=== PATIENT | male | born 1985 | race Caucasian/White ===

== ENCOUNTER → 2020-01-26 13:29 | Outpatient (BNVA) | payer MEDICAID, SELFPAY | PROVIDERS: Family Provider Nurse Practitioner; PCP Family Medicine; Visit Provider Dermatology | DX: R22.9 Localized swelling, mass and lump, unspecified (principal); D17.0 Benign lipomatous neoplasm of skin and subcutaneous tissue of head, face and neck; D17.9 Benign lipomatous neoplasm, unspecified | CPT/HCPCS: 99203 ==

== ENCOUNTER → 2020-02-17 08:57 | Outpatient (BNVA) | payer MEDICAID, SELFPAY | PROVIDERS: Family Provider Nurse Practitioner; PCP Family Medicine; Visit Provider Dermatology | DX: D48.9 Neoplasm of uncertain behavior, unspecified (principal); F17.210 Nicotine dependence, cigarettes, uncomplicated | CPT/HCPCS: 11444; 12052; 88304; 88305 ==

== ENCOUNTER → 2020-02-24 08:22 | Outpatient (BNVA) | payer MEDICAID, SELFPAY | PROVIDERS: Family Provider Nurse Practitioner; PCP Family Medicine; Visit Provider Dermatology | DX: Z48.02 Encounter for removal of sutures (principal); F17.210 Nicotine dependence, cigarettes, uncomplicated | CPT/HCPCS: 99024 ==

== ENCOUNTER → 2020-10-26 12:25 | Outpatient (BNVA) | payer MEDICAID, SELFPAY | PROVIDERS: Family Provider Nurse Practitioner; PCP Family Medicine; Visit Provider Psychiatry & Neurology Psychiatry | DX: F60.3 Borderline personality disorder (principal); F43.12 Post-traumatic stress disorder, chronic; F17.200 Nicotine dependence, unspecified, uncomplicated | CPT/HCPCS: 99204 ==

== ENCOUNTER → 2020-12-14 15:27 | Outpatient (BNVA) | payer MEDICAID, SELFPAY | PROVIDERS: Family Provider Nurse Practitioner; PCP Family Medicine; Visit Provider Psychiatry & Neurology Psychiatry | DX: F60.3 Borderline personality disorder (principal); F17.200 Nicotine dependence, unspecified, uncomplicated; F43.12 Post-traumatic stress disorder, chronic | CPT/HCPCS: 99214 ==

== ENCOUNTER → 2021-02-06 09:21 | Outpatient (BNVA) | payer MEDICAID, SELFPAY | PROVIDERS: Family Provider Nurse Practitioner; PCP Family Medicine; Visit Provider Psychiatry & Neurology Psychiatry | DX: F60.3 Borderline personality disorder (principal) | CPT/HCPCS: 80053; 80061; 83036; 84443; 85025 ==

== ENCOUNTER → 2021-03-07 15:38 | Outpatient (BNVA) | payer MEDICAID, SELFPAY | PROVIDERS: Family Provider Nurse Practitioner; PCP Family Medicine; Visit Provider Psychiatry & Neurology Psychiatry | DX: F60.3 Borderline personality disorder (principal); F17.200 Nicotine dependence, unspecified, uncomplicated; F43.12 Post-traumatic stress disorder, chronic | CPT/HCPCS: 99213 ==

== ENCOUNTER → 2021-05-30 15:31 | Outpatient (BNVA) | payer MEDICAID, SELFPAY | PROVIDERS: Family Provider Nurse Practitioner; PCP Family Medicine; Visit Provider Psychiatry & Neurology Psychiatry | DX: F60.3 Borderline personality disorder (principal); F43.12 Post-traumatic stress disorder, chronic; F17.200 Nicotine dependence, unspecified, uncomplicated | CPT/HCPCS: 99213 ==

== ENCOUNTER → 2021-08-22 15:03 | Outpatient (BNVA) | payer MEDICAID, SELFPAY | PROVIDERS: Family Provider Nurse Practitioner; PCP Family Medicine; Visit Provider Psychiatry & Neurology Psychiatry | DX: F60.3 Borderline personality disorder (principal); F17.200 Nicotine dependence, unspecified, uncomplicated; F43.12 Post-traumatic stress disorder, chronic | CPT/HCPCS: 99214 ==

== ENCOUNTER → 2021-10-18 15:13 | Outpatient (BNVA) | payer MEDICAID, SELFPAY | PROVIDERS: Family Provider Nurse Practitioner; PCP Family Medicine; Visit Provider Psychiatry & Neurology Psychiatry | DX: F60.3 Borderline personality disorder (principal); F43.12 Post-traumatic stress disorder, chronic; F17.200 Nicotine dependence, unspecified, uncomplicated | CPT/HCPCS: 99214 ==

== ENCOUNTER → 2021-12-25 10:18 | Outpatient (BNVA) | payer MEDICAID, SELFPAY | PROVIDERS: Family Provider Nurse Practitioner; PCP Family Medicine; Visit Provider Psychiatry & Neurology Psychiatry | DX: F60.3 Borderline personality disorder (principal); F43.12 Post-traumatic stress disorder, chronic; F17.200 Nicotine dependence, unspecified, uncomplicated | CPT/HCPCS: 99214 ==

== ENCOUNTER → 2024-03-10 14:33 | Outpatient (BNVA) | payer OTHER, SELFPAY | PROVIDERS: Family Provider Nurse Practitioner; PCP Family Medicine; Visit Provider Nurse Practitioner | DX: Z79.899 Other long term (current) drug therapy | CPT/HCPCS: 80061; 83036 ==

== ENCOUNTER 2024-10-02 12:11 | Inpatient (IN) | payer MEDICAID, SELFPAY ==
[2024-10-02 12:19] VITALS: BP 146/78; PULSE 86; RESP 17; TEMP 36.9; O2SAT 100; BMI 24.3
--- NOTE | 2024-10-02 12:48 | ECG_ITS ---
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 Measurements Intervals Adams Rate: 65 P: 45 ID: [id number] QRS: 23 QRSD: 95 T: 18 QT: 364 QTc: 381 Interpretive Statements SINUS RHYTHM Compared to ECG 12/24/2018 15:11:01 No significant changes Electronically Signed On 10-02-2024 14:39:37 CDT by Yue Quevedo M.D. [email or web address]
--- NOTE | 2024-10-02 12:51 | W.ED.PSYCHS ---
HPI - Psych General: Chief Complaint: Psychiatric Symptoms Stated Complaint: mhe Time Seen by Provider: 10/02/24 12:12 History of Present Illness: 39-year-old male presents emergency department chief complaint of suicidal ideations. Patient reports has been over a year since he has seen a psychiatrist reports history of bipolar disorder as well as borderline personality disorder as well as depression. The patient reports current difficulty with sleeping denies any recent drugs or alcohol. Patient reports he is on olanzapine that he is taking as prescribed patient presents to the ER due to his suicidal thoughts he does not endorse any current plan. Associated symptoms: Reports depression and suicidal ideation; Deny auditory hallucinations, visual hallucinations or homicidal ideation Related Data Previous Rx's ?Medication ?Instructions ?Recorded lisinopril 10 1 tab PO DAILY #30 tabs 05/21/24 mg-hydrochlorothiazide 12.5 mg tablet olanzapine 10 mg tablet 10 mg PO DAILY #30 tabs 08/23/24 Allergies Allergy/AdvReac Type Severity Reaction Status Date / Time No Known Allergies Allergy Verified 03/10/24 14:00 Review of Systems General: Reports: 10 or more systems reviewed and unremarkable except in HPI and below Const: Denies: fever(s), chills, fatigue or malaise Eyes: Denies: change in vision or blurry vision Card: Denies: chest pain or palpitations Resp: Denies: dyspnea or productive cough GI: Denies: abdominal pain, nausea or vomiting : Denies: flank pain Musc: Denies: extremity pain or extremity swelling Skin/Breast: Denies: rash or pruritus Neuro: Denies: headache(s) Psych: Reports: depression, mood swings, sleeping less, difficulty concentrating and suicidal ideation; Denies: anxiety, visual hallucinations, auditory hallucinations, tactile hallucinations or homicidal ideation Endo: Denies: polyuria, polydipsia or tired all the time Arjun/Lymph: Denies: easy bleeding All/Imm: Denies: urticaria, throat swelling or facial swelling PFSH ED PFSH: Medical History On combination antipsychotic drug therapy Bipolar 1 disorder Psychiatric care Borderline personality disorder Family History Other CAD (coronary artery disease) Cancer Diabetes Denies family history of Hypertension Social History Smoking and tobacco/nicotine status: current every day tobacco/nicotine user cigarettes Packs smoked per day: 0.15 Years cigarettes smoked: 15 Quit status (tobacco/nicotine): has quit using Year quit tobacco: 2021 Second hand smoke exposure: No Alcohol intake: former Year of sobriety/quit date alcohol: 2014 Substance/Drug Use: never Physical Exam Const: COMMON NORMALS: no acute distress (Somewhat flat affect appreciated.), patient oriented x3 and healthy appearing HENMT: COMMON NORMALS: normocephalic and atraumatic HEAD & SCALP: normocephalic and atraumatic Eye: COMMON NORMALS: Equal, round and reactive pupils present and EOMs intact bilaterally PUPIL: Yes Equal, round and reactive pupils present Neck/C-Spine: COMMON NORMALS: full ROM, supple and no JVD Lymph: LYMPHATIC: no lymphadenopathy noted Chest: COMMONS NORMALS: normal inspection of the chest and normal palpation of entire chest wall Resp: COMMON NORMALS: normal respiratory effort, No retractions and clear to auscultation bilaterally EFFORT & INSPECTION: Yes able to speak in complete sentences and Yes symmetric chest movement AUSCULTATION: clear to auscultation bilaterally Cardio: COMMON NORMALS: no JVD, regular rate and regular rhythm RATE: regular rate RHYTHM: regular rhythm GI: COMMON NORMALS: Normal to inspection, nondistended, normoactive bowel sounds present, Soft to palpation and non-tender INSPECTION: Yes normal to inspection PALPATION: Yes Soft to palpation : COMMON NORMALS: Yes no CVA tenderness BLADDER/KIDNEY EXAM: Yes no CVA tenderness Back/Pelvis: COMMON NORMALS: no CVA tenderness Extremity: COMMON NORMALS: normal to inspection and full ROM Neuro: COMMON NORMALS: patient oriented x3, CN's II-XII intact bilaterally, moves all extremities and no focal motor deficits Psych: COMMON NORMALS: mental status grossly normal, Normal thought process present, cooperative and normal affect THOUGHT PROCESS: Normal thought process present OTHER: Upon direct questioning patient reports suicidal ideations with no actual plan currently, depression Skin: COMMON NORMALS: no rashes or lesions noted GENERAL SKIN EXAM: no rashes or lesions noted Course Vital Signs: Vital signs: Vital Signs Temperature 98.5 F 10/02/24 12:19 Pulse Rate 86 10/02/24 12:19 Respiratory Rate 17 10/02/24 12:19 Blood Pressure 146/78 10/02/24 12:19 Pulse Oximetry 100 10/02/24 12:19 Oxygen Delivery Me thod Room Air 10/02/24 12:19 MDM - Psych Medical Decision Making Due to patient's symptoms and condition will do a medical screening examinations. Inpatient psychiatric admission to [facility] will continue to to follow. Discussed patient's case with Dr. Londono that has granted aceptance of the patient to [facility] , patient ws found to be medically cleared. Affidavit was filled out for the patient based upon his current statements Lab Data 10/02/24 12:24 10/02/24 12:24 Laboratory Results WBC 9.04 10^3/uL (3.29-11.43) 10/02/24 12:24 RBC 4.87 10^6/uL (3.85-5.65) 10/02/24 12:24 Hgb 14.60 g/dL (11.27-16.99) 10/02/24 12:24 Hct 45.6 % (37-53) 10/02/24 12:24 MCV 93.6 fl (82-101) 10/02/24 12:24 MCH 30.0 pg (27-33) 10/02/24 12:24 MCHC 32.0 g/dL (30-55) 10/02/24 12:24 RDW 13.5 % (12.1-15.1) 10/02/24 12:24 Plt Count 290 10^3/cmm (157-399) 10/02/24 12:24 MPV 9.7 fL (7.4-10.4) 10/02/24 12:24 Neut % (Auto) 59.0 % 10/02/24 12:24 Lymph % (Auto) 30.8 % 10/02/24 12:24 [place] % (Auto) 6.4 % 10/02/24 12:24 Eos % (Auto) 3.2 % 10/02/24 12:24 Baso % (Auto) 0.4 % 10/02/24 12:24 Neut # (Auto) 5.33 10^3/uL (1.8-7.7) 10/02/24 12:24 Lymph # (Auto) 2.8 10^3/uL (0.8-4.8) 10/02/24 12:24 [place] # (Auto) 0.6 10^3/uL (0.2-0.9) 10/02/24 12:24 Eos # (Auto) 0.3 10^3/uL (0.0-0.8) 10/02/24 12:24 Baso # (Auto) 0.0 10^3/uL (0.0-0.1) 10/02/24 12:24 Nucleated RBC % (auto) 0 % 10/02/24 12:24 Nucleated RBCs # 0.0 /100WBC 10/02/24 12:24 Sodium 141 mmol/L (136-145) 10/02/24 12:24 Potassium 3.7 mmol/L (3.5-5.1) 10/02/24 12:24 Chloride 104 mmol/L (98-107) 10/02/24 12:24 Carbon Dioxide 27 mmol/L (22-29) 10/02/24 12:24 Anion Gap 13.7 (5-19) 10/02/24 12:24 BUN 10 mg/dL (6-20) 10/02/24 12:24 Creatinine 0.9 mg/dL (0.7-1.2) 10/02/24 12:24 GFR Calculation 93.9 mL/min (90-130) 10/02/24 12:24 Glucose 108 mg/dL (65-115) 10/02/24 12:24 Calculated Osmolality 292 mOsm/kg (285-295) 10/02/24 12:24 Calcium 9.2 mg/dL (8.5-10.5) 10/02/24 12:24 Total Bilirubin 0.4 mg/dL (0.15-1.2) 10/02/24 12:24 AST 16 U/L (0-40) 10/02/24 12:24 ALT 21 U/L (0-41) 10/02/24 12:24 Alkaline Phosphatase 79 U/L (40-130) 10/02/24 12:24 Total Protein 7.2 g/dL (6.6-8.7) 10/02/24 12:24 Albumin 4.5 g/dL (3.5-5.2) 10/02/24 12:24 Globulin 2.7 g/dL (1.3-4.6) 10/02/24 12:24 Urine Color Yellow (Yellow) 10/02/24 13:35 Urine Appearance Clear (CLEAR) 10/02/24 13:35 Urine pH 7.0 (5-7) 10/02/24 13:35 Ur Specific [place] 1.018 (1.005-1.030) 10/02/24 13:35 Urine Protein Negative (Negative) 10/02/24 13:35 Urine Glucose (UA) Negative (Normal) 10/02/24 13:35 Urine Ketones Negative (Negative) 10/02/24 13:35 Urine Blood Negative (Negative) 10/02/24 13:35 Urine Nitrate Negative (Negative) 10/02/24 13:35 Urine Bilirubin Negative (Negative) 10/02/24 13:35 Urine Urobilinogen 1.0 mg/dL (Negative) 10/02/24 13:35 Ur Leukocyte Esterase Trace (Negative) A 10/02/24 13:35 Urine RBC 0-2 /hpf (0-2) 10/02/24 13:35 Urine WBC 0-5 /hpf (0-5) 10/02/24 13:35 Ur Squamous Epith Cells 0-5 /hpf (0-5) 10/02/24 13:35 Amorphous Sediment Not Reportable 10/02/24 13:35 Urine Bacteria None seen /hpf (NONE) 10/02/24 13:35 Hyaline Casts 0-4 /lpf H 10/02/24 13:35 Salicylates < 0.3 mg/dL (3-10) L 10/02/24 12:24 Urine Opiates Screen Negative ng/mL (Negative) 10/02/24 13:35 Acetaminophen < 5.0 ug/mL (10-30) L 10/02/24 12:24 Ur Barbiturates Screen Negative ng/mL (Negative) 10/02/24 13:35 Ur Phencyclidine Scrn Negative ng/mL (Negative) 10/02/24 13:35 Ur Amphetamines Screen Negative ng/mL (Negative) 10/02/24 13:35 U Benzodiazepines Scrn Negative ng/mL (Negative) 10/02/24 13:35 Urine Cocaine Screen Negative ng/mL (Negative) 10/02/24 13:35 U Marijuana (THC) Screen Negative ng/mL (Negative) 10/02/24 13:35 Ethyl Alcohol < 10 mg/dL (0-10) 10/02/24 12:24 No radiology studies performed this visit Discharge Plan Discharge Patient Disposition: Admitted As Inpatient Clinical Impression: Suicidal ideations Condition: Stable Prescriptions: No Action lisinopril-hydrochlorothiazide 10-12.5 mg tablet 1 tab PO DAILY Qty: 30 1RF olanzapine 10 mg tablet 10 mg PO DAILY Qty: 30 0RF Referrals: Hilda Collins MD [Primary Care Provider] - Print Language: Burmese Coding Level of Care Code ED Shredded Filler Machine Wrapper Layer for Eladio Diego
[2024-10-02 12:59] LABS: Basophils % 0.4 %; Eosinophils # 0.3 10^3/uL (0.0-0.8); Eosinophils % 3.2 %; Hematocrit 45.6 % (37-53); Lymphocytes # 2.8 10^3/uL (0.8-4.8); Lymphocytes % 30.8 %; Mean Corpuscular Volume 93.6 fl (82-101); Mean Platelet Volume 9.7 fL (7.4-10.4); Monocytes # 0.6 10^3/uL (0.2-0.9); Monocytes % 6.4 %; Neutrophils # 5.33 10^3/uL (1.8-7.7); Nucleated Red Blood Cells % 0 %; Platelet Count 290 10^3/cmm (157-399); Red Blood Count 4.87 10^6/uL (3.85-5.65); Red Cell Distribution Width 13.5 % (12.1-15.1); White Blood Count 9.04 10^3/uL (3.29-11.43)
[2024-10-02 13:10] LABS: Alanine Aminotransferase 21 U/L (0-41); Albumin Level 4.5 g/dL (3.5-5.2); Alkaline Phosphatase 79 U/L (40-130); Anion Gap 13.7 (5-19); Aspartate Amino Transferase 16 U/L (0-40); Blood Urea Nitrogen 10 mg/dL (6-20); Calcium 9.2 mg/dL (8.5-10.5); Carbon Dioxide 27 mmol/L (22-29); Chloride 104 mmol/L (98-107); Globulin 2.7 g/dL (1.3-4.6); Glomerular Filtration Rate 93.9 mL/min (90-130); Glucose 108 mg/dL (65-115); Osmolality Calculated 292 mOsm/kg (285-295); Potassium 3.7 mmol/L (3.5-5.1); Sodium 141 mmol/L (136-145); Total Bilirubin 0.4 mg/dL (0.15-1.2); Total Protein 7.2 g/dL (6.6-8.7)
[2024-10-02 13:15] LABS: Acetaminophen < 5.0 ug/mL (10-30); Alcohol Level < 10 mg/dL (0-10); Salicylate < 0.3 mg/dL (3-10)
[2024-10-02 13:50] LABS: Bilirubin Urine Negative (Negative); Blood Urine Negative (Negative); Glucose Urine UA Negative (Normal); Ketones Urine Negative (Negative); Leukocyte Esterase Urine Trace (Negative); Nitrate Urine Negative (Negative); Protein Urine Negative (Negative); Specific Gravity, Urine 1.018 (1.005-1.030); Urine Appearance Clear (CLEAR); Urine Color Yellow (Yellow)
[2024-10-02 13:52] LABS: Add Urine Microscopic? YES; Bacteria Urine None Seen /hpf; Hyaline Casts Urine 0-4 /lpf; RBC Urine 0-2 /hpf (0-2); Squamous Epithelial Cell Urine 0-5 /hpf (0-5); WBC Urine 0-5 /hpf (0-5)
[2024-10-02 14:00] LABS: Amphetamines Screen Urine Negative (Negative); Barbiturates Screen Urine Negative (Negative); Benzodiazepines Screen Urine Negative (Negative); Cocaine Screen Urine Negative (Negative); Opiate Screen Urine Negative (Negative); PCP Screen Urine Negative (Negative); THC Screen Urine Negative (Negative)
[2024-10-02 16:10] VITALS: BP 132/70; PULSE 76; O2SAT 99
[2024-10-02 16:18] VITALS: BP 116/78; PULSE 64; RESP 17; TEMP 36.9; O2SAT 99
[2024-10-02 20:06] VITALS: BP 122/77; PULSE 71; RESP 17; TEMP 36.9; O2SAT 97
[2024-10-03 06:00] VITALS: BP 106/66; PULSE 69; RESP 17; O2SAT 97
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
[2024-10-03 14:00] VITALS: BP 110/69; PULSE 84; RESP 16; TEMP 37; O2SAT 96
[2024-10-03] MEDS: hyDROXYzine 25 mg Capsule 50 MG PO (19:40)
[2024-10-03] MEDS: ARIPiprazole 10 mg Tablet 5 MG PO (19:40)
[2024-10-03] MEDS: trazodone 50 mg Tablet PO (19:40)
[2024-10-03 21:37] VITALS: BP 122/81; PULSE 64; RESP 18; O2SAT 98
[2024-10-04 06:00] VITALS: BP 108/67; PULSE 95; RESP 16; TEMP 36.8; O2SAT 96
[2024-10-04] MEDS: ARIPiprazole 10 mg Tablet 5 MG PO (08:22)
[2024-10-04 14:00] VITALS: BP 122/72; PULSE 107; RESP 17; TEMP 37.1; O2SAT 96
--- NOTE | 2024-10-04 18:21 | W.PM.NPUPNS ---
Subjective NPU Subjective: Patient presented today reporting that things are going okay. He reports there were no issues with the Abilify. He reports he feels a little better. We discussed the risks, benefits and alternatives of increasing his Abilify to 10 mg p.o. daily and he understood and agreed to proceed as is documented in this note. He denied any side effects to the medication. Mental Status Exam MSE Comments: This is an overweight versus obese white male in hospital scrubs with poor grooming and limited eye contact. No abnormal movements except for psychomotor retardation. Cooperative with exam and mild distress. Speech was decreased rate and volume. With some mild pauses. Mood described as depressed, affect congruent. Thought process organized. Thought content: Patient endorsed having some suicidal thoughts leading to the hospitalization but reported not having any safety issues here in the hospital. He denied homicidal ideation, there were no delusions reported or noted, he denied auditory or visual hallucination. Reports suicidal thoughts induced by Zyprexa, but currently denies any thoughts of self-harm or suicide. Denies current thoughts of violence or aggression against others, visual hallucinations, and delusions. Experiences constant anxiety with persistent worrying. History of depression with feelings of helplessness, hopelessness, and worthlessness during depressive episodes. Reports periods of insomnia, sometimes lasting up to a week with minimal sleep. Mood is reported as good today. Concern about the dog at home due to lack of care. Attention, concentration and memory appeared intact, but none were formally tested. He appeared alert and oriented x 3. Insight, judgment and impulse control all appeared limited versus impaired. Vitals/I&O/Wt Last Vital Signs Temp 98.7 F 10/04/24 14:00 Pulse 107 H 10/04/24 14:00 Resp 17 10/04/24 14:00 BP 122/72 10/04/24 14:00 Pulse Ox 96 10/04/24 14:00 O2 Del Method Room Air 10/02/24 16:19 Weight last 48 hrs Weight 85.275 kg Data NPU 10/02/24 12:24 10/02/24 12:24 A&P Assessment and plan (1) Chronic post-traumatic stress disorder: (2) Borderline personality disorder: (3) Bipolar disorder: (4) Suicidal ideations: Plan This is a 39-year-old white male with a long history of addiction, mental health treatment but limited medications who reported having new onset suicidality. Borderline personality disorder and PTSD are the primary diagnoses. ADHD is also present, contributing to difficulties with attention and impulsivity. Bipolar disorder symptoms have been noted since the age of 13, characterized by mood swings, aggression, and periods of depression. Anxiety is pervasive, manifesting as constant worry. There is a history of suicidal thoughts, exacerbated by the use of Zyprexa, which led to hospitalization. 1. Started Abilify 5 mg p.o. daily. Increase to 10 mg p.o. daily. 2. Continue every 15 minute checks for safety. 3. Encourage individual, group and milieu therapies. 4. Obtain collateral information. PDMP PDMP Reviewed: Not Reviewed Involuntary Hold Information Hold Status: Date/Time Hold Expires: vol w/aff Attestations NPU Medical Necessity Statement*: Inpatient hospitalization is medically necessary and the clinically appropriate intervention at this time. We will monitor/initiate medications and make changes as indicated. Likely length of stay 4-7 days. Coding Level of Care Code Acute Code for [facility] Fwd Diagnoses Chronic post-traumatic stress disorder F43.12 Borderline personality disorder F60.3 Bipolar disorder F31.9 Suicidal ideations R45.851
[2024-10-04] MEDS: nicotine 4 mg lozenge MUCOUS MEM (19:55)
[2024-10-04 19:58] VITALS: BP 121/80; PULSE 86; RESP 18; TEMP 37.1; O2SAT 96
[2024-10-05 06:00] VITALS: BP 117/68; PULSE 104; RESP 18; TEMP 36.6; O2SAT 97
[2024-10-05] MEDS: ARIPiprazole 10 mg Tablet 5 MG PO ×2 (08:37→12:34)
[2024-10-05 14:00] VITALS: BP 115/75; PULSE 76; RESP 16; TEMP 37.1; O2SAT 96
--- NOTE | 2024-10-05 16:12 | W.PM.NPUPNS ---
Subjective NPU Subjective: Patient presented today reporting that he feels the Abilify has been very helpful. He reports feeling better than he has in some time. We discussed working with the social work team to make sure we have appropriate outpatient planning and that his access to community resources is helpful. He was open to his continued stay here and feels this is where he needed to be to get things back on track. He denied any side effects to medications. Mental Status Exam MSE Comments: This is an overweight versus obese white male in hospital scrubs with poor grooming and limited eye contact. No abnormal movements except for psychomotor retardation. Cooperative with exam and mild distress. Speech was decreased rate and volume. With some mild pauses. Mood described as depressed, affect congruent. Thought process organized. Thought content: Patient endorsed having some suicidal thoughts leading to the hospitalization but reported not having any safety issues here in the hospital. He denied homicidal ideation, there were no delusions reported or noted, he denied auditory or visual hallucination. Reports suicidal thoughts induced by Zyprexa, but currently denies any thoughts of self-harm or suicide. Denies current thoughts of violence or aggression against others, visual hallucinations, and delusions. Experiences constant anxiety with persistent worrying. History of depression with feelings of helplessness, hopelessness, and worthlessness during depressive episodes. Reports periods of insomnia, sometimes lasting up to a week with minimal sleep. Mood is reported as good today. Concern about the dog at home due to lack of care. Attention, concentration and memory appeared intact, but none were formally tested. He appeared alert and oriented x 3. Insight, judgment and impulse control all appeared limited versus impaired. Vitals/I&O/Wt Last Vital Signs Temp 98 F 10/05/24 06:00 Pulse 104 H 10/05/24 06:00 Resp 18 10/05/24 06:00 BP 117/68 10/05/24 06:00 Pulse Ox 97 10/05/24 06:00 O2 Del Method Room Air 10/05/24 06:00 Data NPU 10/02/24 12:24 10/02/24 12:24 A&P Assessment and plan (1) Chronic post-traumatic stress disorder: (2) Borderline personality disorder: (3) Bipolar disorder: (4) Suicidal ideations: Plan This is a 39-year-old white male with a long history of addiction, mental health treatment but limited medications who reported having new onset suicidality. Borderline personality disorder and PTSD are the primary diagnoses. ADHD is also present, contributing to difficulties with attention and impulsivity. Bipolar disorder symptoms have been noted since the age of 13, characterized by mood swings, aggression, and periods of depression. Anxiety is pervasive, manifesting as constant worry. There is a history of suicidal thoughts, exacerbated by the use of Zyprexa, which led to hospitalization. 1. Started Abilify 5 mg p.o. daily. Increased to 10 mg p.o. daily. 2. Continue every 15 minute checks for safety. 3. Encourage individual, group and milieu therapies. 4. Obtain collateral information. PDMP PDMP Reviewed: Not Reviewed Involuntary Hold Information Hold Status: Date/Time Hold Expires: vol w/aff Attestations NPU Medical Necessity Statement*: Inpatient hospitalization is medically necessary and the clinically appropriate intervention at this time. We will monitor/initiate medications and make changes as indicated. Likely length of stay 3-6 days. Coding Level of Care Code Acute Code for [facility] Fwd Diagnoses Chronic post-traumatic stress disorder F43.12 Borderline personality disorder F60.3 Bipolar disorder F31.9 Suicidal ideations R45.851
[2024-10-05] MEDS: nicotine 4 mg lozenge MUCOUS MEM (18:23)
[2024-10-05 19:57] VITALS: BP 125/75; PULSE 85; RESP 17; TEMP 37.2; O2SAT 97
[2024-10-05] MEDS: trazodone 50 mg Tablet PO (22:55)
[2024-10-06 06:00] VITALS: BP 118/74; PULSE 88; RESP 16; TEMP 36.9; O2SAT 97
[2024-10-06] MEDS: ARIPiprazole 10 mg Tablet PO (08:01)
[2024-10-06 14:00] VITALS: BP 121/79; PULSE 94; RESP 18; TEMP 37.1; O2SAT 96
--- NOTE | 2024-10-06 17:28 | P.NPUPN_ITS ---
Subjective NPU 2 Subjective: Patient presented today reporting that things are feeling better. He reports he feels that the Abilify has been very helpful and he is optimistic about things moving forward. He reports he looks forward to managing things back home and is missing his dog. We discussed the likelihood for discharge in the next 48 hours. He denied any side effects to the medication. Mental Status Exam 2 MSE Comments: This is an overweight versus obese white male in hospital scrubs with poor grooming and limited eye contact. No abnormal movements except for psychomotor retardation. Cooperative with exam and mild distress. Speech was decreased rate and volume. With some mild pauses. Mood described as depressed, affect congruent. Thought process organized. Thought content: Patient endorsed having some suicidal thoughts leading to the hospitalization but reported not having any safety issues here in the hospital. He denied homicidal ideation, there were no delusions reported or noted, he denied auditory or visual hallucination. Attention, concentration and memory appeared intact, but none were formally tested. He appeared alert and oriented x 3. Insight, judgment and impulse control all appeared limited versus impaired. Vitals/I&O/Wt Last Vital Signs Temp 98.6 F 10/06/24 20:00 Pulse 93 10/06/24 20:00 Resp 18 10/06/24 20:00 BP 149/88 10/06/24 20:00 Pulse Ox 95 10/06/24 20:00 O2 Del Method Room Air 10/06/24 20:00 Data NPU 10/02/24 12:24 10/02/24 12:24 A&P Assessment and plan (1) Chronic post-traumatic stress disorder: (2) Borderline personality disorder: (3) Bipolar disorder: (4) Suicidal ideations: Plan This is a 39-year-old white male with a long history of addiction, mental health treatment but limited medications who reported having new onset suicidality. Borderline personality disorder and PTSD are the primary diagnoses. ADHD is also present, contributing to difficulties with attention and impulsivity. Bipolar disorder symptoms have been noted since the age of 13, characterized by mood swings, aggression, and periods of depression. Anxiety is pervasive, manifesting as constant worry. There is a history of suicidal thoughts, exacerbated by the use of Zyprexa, which led to hospitalization. 1. Started Abilify 5 mg p.o. daily. Increased to 10 mg p.o. daily. 2. Continue every 15 minute checks for safety. 3. Encourage individual, group and milieu therapies. 4. Obtain collateral information. PDMP PDMP Reviewed: Not Reviewed Involuntary Hold Information 2 Hold Status: Date/Time Hold Expires: vol w/aff Attestations NPU 2 Medical Necessity Statement*: Inpatient hospitalization is medically necessary and the clinically appropriate intervention at this time. We will monitor/initiate medications and make changes as indicated. Likely length of stay 1-3 days. Coding Level of Care Code Acute Code for [facility] Fwd Diagnoses Chronic post-traumatic stress disorder F43.12 Borderline personality disorder F60.3 Bipolar disorder F31.9 Suicidal ideations R45.851
[2024-10-06 20:00] VITALS: BP 149/88; PULSE 93; RESP 18; TEMP 37; O2SAT 95
[2024-10-06] MEDS: trazodone 50 mg Tablet PO (20:45)
[2024-10-07 06:00] VITALS: BP 154/71; PULSE 90; RESP 17; TEMP 37.1; O2SAT 96
[2024-10-07] MEDS: ARIPiprazole 10 mg Tablet PO (08:13)
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
[2024-10-07 12:58] VITALS: BP 154/71; PULSE 90; RESP 16; TEMP 37.1; O2SAT 96
== END 2024-10-07 14:10 | disposition home or self-care (01) | DRG 883 ==
LOC: ER 15:42 → NP 15:44
PROVIDERS: Admitting Provider Psychiatry & Neurology Psychiatry; Emergency Provider Emergency Medicine; PCP Family Medicine; Visit Provider Psychiatry & Neurology Psychiatry
DX: F60.3 Borderline personality disorder (principal); R45.851 Suicidal ideations; F31.9 Bipolar disorder, unspecified; F43.12 Post-traumatic stress disorder, chronic; F17.210 Nicotine dependence, cigarettes, uncomplicated; Z81.8 Family history of other mental and behavioral disorders; Z91.52 Personal history of nonsuicidal self-harm; E66.3 Overweight; Z68.28 Body mass index [BMI] 28.0-28.9, adult
CPT/HCPCS: 80053; 80306; 80307; 81001; 85025; 93005; 97150; 97165; 99285; J9999

== ENCOUNTER 2024-10-30 21:20 | Inpatient (IN) | payer MEDICAID, SELFPAY ==
[2024-10-30 21:21] VITALS: BP 114/71; PULSE 72; RESP 16; TEMP 36.6; O2SAT 95; BMI 28.1
--- NOTE | 2024-10-30 21:26 | W.ED.PSYCHS ---
HPI - Psych General: Chief Complaint: Psychiatric Symptoms Stated Complaint: SI Time Seen by Provider: 10/30/24 21:21 Source: patient and EMS Mode of arrival: EMS Limitations: no limitations History of Present Illness: 39-year-old male with history of bipolar disorder history of suicidality states been having suicidal thoughts today. He denies any worsening improving factors. He has no specific plan but states he feels like he is going to kill himself. Associated symptoms: Reports depression and suicidal ideation Related Data Previous Rx's ?Medication ?Instructions ?Recorded lisinopril 10 1 tab PO DAILY #30 tabs 10/07/24 mg-hydrochlorothiazide 12.5 mg tablet aripiprazole 10 mg tablet 10 mg PO DAILY 30 days #30 tabs 10/11/24 trazodone 50 mg tablet 50 mg PO BEDTIME PRN Sleep 30 days 10/11/24 #30 tabs Allergies Allergy/AdvReac Type Severity Reaction Status Date / Time No Known Allergies Allergy Verified 10/30/24 21:22 Review of Systems Const: Denies: fever(s), chills, body aches or change in appetite ENMT: Denies: throat pain or dental pain Card: Denies: chest pain Resp: Denies: dyspnea GI: Denies: abdominal pain, nausea, vomiting or diarrhea Musc: Denies: neck pain or back pain Skin/Breast: Denies: rash Neuro: Denies: headache(s) Psych: Reports: depression and suicidal ideation [facility] ED PFSH: Medical History On combination antipsychotic drug therapy Bipolar 1 disorder Psychiatric care Borderline personality disorder Family History Other CAD (coronary artery disease) Cancer Diabetes Denies family history of Hypertension Social History Smoking and tobacco/nicotine status: current every day tobacco/nicotine user cigarettes Packs smoked per day: 0.15 Years cigarettes smoked: 15 Quit status (tobacco/nicotine): has quit using Year quit tobacco: 2021 Second hand smoke exposure: No Alcohol intake: former Year of sobriety/quit date alcohol: 2014 Substance/Drug Use: never Physical Exam Const: COMMON NORMALS: no acute distress, patient oriented x3 and healthy appearing HENMT: COMMON NORMALS: normocephalic and atraumatic HEAD & SCALP: normocephalic and atraumatic Eye: COMMON NORMALS: conjunctivae normal CONJUNCTIVA: Yes conjunctivae normal Neck/C-Spine: COMMON NORMALS: full ROM and supple Chest: COMMONS NORMALS: normal inspection of the chest Resp: COMMON NORMALS: normal respiratory effort Cardio: COMMON NORMALS: regular rate RATE: regular rate Extremity: COMMON NORMALS: normal to inspection and full ROM Neuro: COMMON NORMALS: patient oriented x3, moves all extremities and no focal motor deficits Psych: COMMON NORMALS: mental status grossly normal, Normal thought process present and cooperative MOOD & AFFECT: Yes depressed mood THOUGHT PROCESS: Normal thought process present THOUGHT CONTENT: Yes Suicidality present Skin: COMMON NORMALS: no rashes or lesions noted and no wounds GENERAL SKIN EXAM: no rashes or lesions noted Course Vital Signs: Vital signs: Vital Signs Temperature 97.8 F 10/30/24 21:21 Pulse Rate 72 10/30/24 21:21 Respiratory Rate 16 10/30/24 21:21 Blood Pressure 114/71 10/30/24 21:21 Pulse Oximetry 95 10/30/24 21:21 Oxygen Delivery Me thod Room Air 10/30/24 21:21 MDM - Psych Medical Decision Making Patient presents here with suicidal ideations he is medically cleared will admit at this time. Medical Records I reviewed the patient's medical records. Lab Data I reviewed the patient's lab results. 10/30/24 21:35 10/30/24 21:35 Laboratory Results WBC 11.50 10^3/uL (3.29-11.43) H 10/30/24 21:35 RBC 4.77 10^6/uL (3.85-5.65) 10/30/24 21:35 Hgb 14.50 g/dL (11.27-16.99) 10/30/24 21:35 Hct 44.1 % (37-53) 10/30/24 21:35 MCV 92.5 fl (82-101) 10/30/24 21:35 MCH 30.4 pg (27-33) 10/30/24 21:35 MCHC 32.9 g/dL (30-55) 10/30/24 21:35 RDW 12.9 % (12.1-15.1) 10/30/24 21:35 Plt Count 268 10^3/cmm (157-399) 10/30/24 21:35 MPV 9.0 fL (7.4-10.4) 10/30/24 21:35 Neut % (Auto) 58.6 % 10/30/24 21:35 Lymph % (Auto) 30.2 % 10/30/24 21:35 Churchill % (Auto) 8.4 % 10/30/24 21:35 Eos % (Auto) 2.0 % 10/30/24 21:35 Baso % (Auto) 0.5 % 10/30/24 21:35 Neut # (Auto) 6.73 10^3/uL (1.8-7.7) 10/30/24 21:35 Lymph # (Auto) 3.5 10^3/uL (0.8-4.8) 10/30/24 21:35 Churchill # (Auto) 1.0 10^3/uL (0.2-0.9) H 10/30/24 21:35 Eos # (Auto) 0.2 10^3/uL (0.0-0.8) 10/30/24 21:35 Baso # (Auto) 0.1 10^3/uL (0.0-0.1) 10/30/24 21:35 Nucleated RBC % (auto) 0 % 10/30/24 21: Nucleated RBCs # 0.0 /100WBC 10/30/24 21:35 Sodium 140 mmol/L (136-145) 10/30/24 21:35 Potassium 4.0 mmol/L (3.5-5.1) 10/30/24 21:35 Chloride 102 mmol/L (98-107) 10/30/24 21:35 Carbon Dioxide 25 mmol/L (22-29) 10/30/24 21:35 Anion Gap 17.0 (5-19) 10/30/24 21:35 BUN 12 mg/dL (6-20) 10/30/24 21:35 Creatinine 0.9 mg/dL (0.7-1.2) 10/30/24 21:35 GFR Calculation 93.9 mL/min (90-130) 10/30/24 21:35 Glucose 101 mg/dL (65-115) 10/30/24 21:35 Calculated Osmolality 290 mOsm/kg (285-295) 10/30/24 21:35 Calcium 9.9 mg/dL (8.5-10.5) 10/30/24 21:35 Total Bilirubin 0.3 mg/dL (0.15-1.2) 10/30/24 21:35 AST 15 U/L (0-40) 10/30/24 21:35 ALT 23 U/L (0-41) 10/30/24 21:35 Alkaline Phosphatase 73 U/L (40-130) 10/30/24 21:35 Total Protein 7.8 g/dL (6.6-8.7) 10/30/24 21:35 Albumin 4.6 g/dL (3.5-5.2) 10/30/24 21:35 Globulin 3.2 g/dL (1.3-4.6) 10/30/24 21:35 Salicylates < 0.3 mg/dL (3-10) L 10/30/24 21:35 Acetaminophen < 5.0 ug/mL (10-30) L 10/30/24 21:35 Ethyl Alcohol < 10 mg/dL (0-10) 10/30/24 21:35 All radiology interpretation(s) finalized by discharge Discharge Plan Discharge Patient Disposition: Admitted As Inpatient Clinical Impression: Suicidal ideation Condition: Stable Prescriptions: No Action trazodone 50 mg tablet 50 mg PO BEDTIME PRN (Reason: Sleep) 30 Days Qty: 30 1RF aripiprazole 10 mg tablet 10 mg PO DAILY 30 Days Qty: 30 1RF lisinopril-hydrochlorothiazide 10-12.5 mg tablet 1 tab PO DAILY Qty: 30 1RF Referrals: Hilda Collins MD [Primary Care Provider] - Print Language: Hebrew Coding Level of Care Code ED Workers Compensation Consultant for [employer] Diego
[2024-10-30 21:40] LABS: Basophils # 0.1 10^3/uL (0.0-0.1); Basophils % 0.5 %; Eosinophils # 0.2 10^3/uL (0.0-0.8); Hematocrit 44.1 % (37-53); Lymphocytes # 3.5 10^3/uL (0.8-4.8); Lymphocytes % 30.2 %; Mean Corpuscular HGB Conc 32.9 g/dL (30-55); Mean Corpuscular Hemoglobin 30.4 pg (27-33); Mean Corpuscular Volume 92.5 fl (82-101); Monocytes % 8.4 %; Neutrophils # 6.73 10^3/uL (1.8-7.7); Neutrophils % 58.6 %; Nucleated Red Blood Cells % 0 %; Platelet Count 268 10^3/cmm (157-399); Red Blood Count 4.77 10^6/uL (3.85-5.65); Red Cell Distribution Width 12.9 % (12.1-15.1)
[2024-10-30 21:57] LABS: Alanine Aminotransferase 23 U/L (0-41); Albumin Level 4.6 g/dL (3.5-5.2); Alkaline Phosphatase 73 U/L (40-130); Aspartate Amino Transferase 15 U/L (0-40); Blood Urea Nitrogen 12 mg/dL (6-20); Calcium 9.9 mg/dL (8.5-10.5); Carbon Dioxide 25 mmol/L (22-29); Chloride 102 mmol/L (98-107); Creatinine Clr Calc Pharmacy 112.7191; Globulin 3.2 g/dL (1.3-4.6); Glomerular Filtration Rate 93.9 mL/min (90-130); Glucose 101 mg/dL (65-115); Osmolality Calculated 290 mOsm/kg (285-295); Sodium 140 mmol/L (136-145); Total Bilirubin 0.3 mg/dL (0.15-1.2); Total Protein 7.8 g/dL (6.6-8.7)
[2024-10-30 21:58] LABS: Acetaminophen < 5.0 ug/mL (10-30); Alcohol Level < 10 mg/dL (0-10); Salicylate < 0.3 mg/dL (3-10)
--- NOTE | 2024-10-30 22:01 | PC.NURSE ---
96 Hour Hold Education provided to patient regarding being placed under a 96 hour hold. Rights read and copy left at bedside. When asked if patient understood education, patient verbalized understanding and stated no further questions.
[2024-10-30 22:13] VITALS: BP 109/68; PULSE 81; RESP 18; TEMP 36.8; O2SAT 97
[2024-10-30 22:34] LABS: Amphetamines Screen Urine Negative (Negative); Barbiturates Screen Urine Negative (Negative); Benzodiazepines Screen Urine Negative (Negative); Cocaine Screen Urine Negative (Negative); Opiate Screen Urine Negative (Negative); PCP Screen Urine Negative (Negative); THC Screen Urine Negative (Negative)
[2024-10-31 06:00] VITALS: BP 99/59; PULSE 84; RESP 18; TEMP 36.6; O2SAT 98
[2024-10-31] MEDS: hydroCHLOROthiazide 25 mg Tablet 12.5 MG PO (09:46)
[2024-10-31] MEDS: lisinopril 10 mg Tablet PO (09:46)
[2024-10-31] MEDS: ARIPiprazole 10 mg Tablet PO (09:46)
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
[2024-10-31 14:00] VITALS: BP 118/47; PULSE 86; RESP 18; O2SAT 96
[2024-10-31] MEDS: trazodone 50 mg Tablet PO (20:12)
[2024-10-31 20:39] VITALS: BP 103/64; PULSE 82; RESP 18; TEMP 36.9; O2SAT 96
[2024-11-01 06:00] VITALS: BP 103/70; PULSE 88; RESP 18; TEMP 36.8; O2SAT 99
[2024-11-01] MEDS: ARIPiprazole 10 mg Tablet PO (07:53)
[2024-11-01] MEDS: hydroCHLOROthiazide 25 mg Tablet 12.5 MG PO (07:53)
[2024-11-01] MEDS: lisinopril 10 mg Tablet PO (07:54)
--- NOTE | 2024-11-01 13:51 | P.NPUPN_ITS ---
Subjective NPU 2 Subjective: Patient presented today reporting that he is doing fine. He reports that he continues to have no real insight into why things worsened and specifically so quickly. We discussed the risks, benefits and alternatives of us reaching out to his team and getting some recommendations from his provider as well as therapist and talking about whether his therapy or interactions at [facility] should be stepped up and he understood and agreed to proceed as is documented in this note. He denied any side effects of his medication at this point. Mental Status Exam 2 MSE Comments: This is an overweight versus obese white male in hospital scrubs with poor grooming and limited eye contact. No abnormal movements except for psychomotor retardation. Cooperative with exam and mild to moderate distress. Speech was decreased rate and volume. With some mild pauses. Mood described as depressed, affect congruent. Thought process organized. Thought content: Patient endorsed having some suicidal thoughts, but denied homicidal ideation, there were no delusions reported or noted, he denied auditory or visual hallucination. Attention, concentration and memory appeared intact, but none were formally tested. He appeared alert and oriented x 3. Insight, judgment and impulse control all appeared limited versus impaired. Vitals/I&O/Wt Last Vital Signs Temp 98.3 F 11/01/24 06:00 Pulse 88 11/01/24 06:00 Resp 18 11/01/24 06:00 BP 103/70 11/01/24 06:00 Pulse Ox 99 11/01/24 06:00 O2 Del Method Room Air 10/31/24 14:00 Weight last 48 hrs Weight 81.647 kg Weight 81.647 kg Data NPU 10/30/24 21:35 10/30/24 21:35 A&P Assessment and plan (1) Chronic post-traumatic stress disorder: (2) Borderline personality disorder: (3) Bipolar disorder: (4) Suicidal ideations: Plan This is a 39-year-old white male with a long history of addiction, mental health treatment but limited medications who was just discharged from this facility 24 days ago and presents once again reporting reported suicidality. He has working diagnoses of borderline personality disorder and PTSD. ADHD is also present, contributing to difficulties with attention and impulsivity. Bipolar disorder symptoms have been noted since the age of 13, characterized by mood swings, aggression, and periods of depression. Anxiety is pervasive, manifesting as constant worry. 1. Continue current medication. Likely increase Abilify to 15 mg and look at adding an antidepressant. 2. Continue every 15 minute checks for safety. 3. Encourage individual, group and milieu therapies. 4. Obtain collateral information. 5. Evaluate against the backdrop of the 96-hour hold. 6. Patient probably needs increased outpatient services and contacts through either case management or more intensive outpatient therapy. PDMP PDMP Reviewed: Not Reviewed Involuntary Hold Information 2 Hold Status: Legal Status: 96 Hour Hold Date/Time Hold Expires: 0 11/05/24@00:01 Attestations NPU 2 Medical Necessity Statement*: Inpatient hospitalization is medically necessary and the clinically appropriate intervention at this time. We will monitor/initiate medications and make changes as indicated. Likely length of stay 4-6 days. Coding Level of Care Code Acute Code for [facility] Fwd Diagnoses Chronic post-traumatic stress disorder F43.12 Borderline personality disorder F60.3 Bipolar disorder F31.9 Suicidal ideations R45.851
[2024-11-01 14:00] VITALS: BP 110/64; PULSE 71; RESP 16; TEMP 36.8; O2SAT 97
[2024-11-01] MEDS: nicotine 4 mg lozenge MUCOUS MEM (18:13)
[2024-11-01 21:08] VITALS: BP 114/69; PULSE 68; RESP 18; TEMP 36.6; O2SAT 97
[2024-11-02 06:00] VITALS: BP 104/71; PULSE 89; RESP 16; TEMP 37.4; O2SAT 96
[2024-11-02] MEDS: hydroCHLOROthiazide 25 mg Tablet 12.5 MG PO (09:46)
[2024-11-02] MEDS: lisinopril 10 mg Tablet PO (09:47)
[2024-11-02] MEDS: ARIPiprazole 10 mg Tablet PO (09:47)
[2024-11-02 14:00] VITALS: BP 107/65; PULSE 78; RESP 16; TEMP 37; O2SAT 96
--- NOTE | 2024-11-02 16:02 | P.NPUPN_ITS ---
Subjective NPU 2 Subjective: Patient presented today reporting that things are going the same. We had a lengthy discussion about his social circumstance and connectedness. We discussed the importance of him engaging in something outside of his home and likely something outside of his comfort zone. We also discussed the risks, benefits and alternatives of increasing his Abilify to 15 mg p.o. daily and he understood and agreed to proceed as is documented in this note. He denied any side effects of his medication. Mental Status Exam 2 MSE Comments: This is an overweight versus obese white male in hospital scrubs with poor grooming and limited eye contact. No abnormal movements except for psychomotor retardation. Cooperative with exam and mild to moderate distress. Speech was decreased rate and volume. With some mild pauses. Mood described as depressed, affect congruent. Thought process organized. Thought content: Patient endorsed having some suicidal thoughts, but denied homicidal ideation, there were no delusions reported or noted, he denied auditory or visual hallucination. Attention, concentration and memory appeared intact, but none were formally tested. He appeared alert and oriented x 3. Insight, judgment and impulse control all appeared limited versus impaired. Vitals/I&O/Wt Last Vital Signs Temp 98.6 F 11/02/24 14:00 Pulse 78 11/02/24 14:00 Resp 16 11/02/24 14:00 BP 107/65 11/02/24 14:00 Pulse Ox 96 11/02/24 14:00 O2 Del Method Room Air 11/02/24 14:00 Data NPU 10/30/24 21:35 10/30/24 21:35 A&P Assessment and plan (1) Chronic post-traumatic stress disorder: (2) Borderline personality disorder: (3) Bipolar disorder: (4) Suicidal ideations: Plan This is a 39-year-old white male with a long history of addiction, mental health treatment but limited medications who was just discharged from this facility 24 days ago and presents once again reporting reported suicidality. He has working diagnoses of borderline personality disorder and PTSD. ADHD is also present, contributing to difficulties with attention and impulsivity. Bipolar disorder symptoms have been noted since the age of 13, characterized by mood swings, aggression, and periods of depression. Anxiety is pervasive, manifesting as constant worry. 1. Continue current medication. Increase Abilify to 15 mg and adding an antidepressant. 2. Continue every 15 minute checks for safety. 3. Encourage individual, group and milieu therapies. 4. Obtain collateral information. 5. Evaluate against the backdrop of the 96-hour hold. 6. Patient probably needs increased outpatient services and contacts through either case management or more intensive outpatient therapy. PDMP PDMP Reviewed: Not Reviewed Involuntary Hold Information 2 Hold Status: Legal Status: 96 Hour Hold Date/Time Hold Expires: 0 11/05/24@00:01 Attestations NPU 2 Medical Necessity Statement*: Inpatient hospitalization is medically necessary and the clinically appropriate intervention at this time. We will monitor/initiate medications and make changes as indicated. Likely length of stay 3-5 days. Coding Level of Care Code Acute Code for [facility] Fwd Diagnoses Chronic post-traumatic stress disorder F43.12 Borderline personality disorder F60.3 Bipolar disorder F31.9 Suicidal ideations R45.851
[2024-11-02 19:56] VITALS: BP 112/65; PULSE 88; RESP 18; TEMP 37.2; O2SAT 96
[2024-11-03 06:00] VITALS: BP 126/56; PULSE 74; RESP 18; TEMP 37.2; O2SAT 97
[2024-11-03] MEDS: hydroCHLOROthiazide 25 mg Tablet 12.5 MG PO (09:15)
[2024-11-03] MEDS: lisinopril 10 mg Tablet PO (09:15)
[2024-11-03] MEDS: ARIPiprazole 10 mg Tablet 15 MG PO (09:15)
[2024-11-03 14:00] VITALS: BP 115/79; PULSE 87; RESP 16; TEMP 37.3; O2SAT 96
--- NOTE | 2024-11-03 15:15 | P.NPUPN_ITS ---
Subjective NPU 2 Subjective: Patient presents today reporting that things are going okay. He denies any major issues today. He reports feeling better overall and did except case management referral from the social work team. We discussed the possibility of an antidepressant including the risks, benefits and alternatives and he understood and agreed to proceed as is documented in his note denying an interest in starting an additional medication. He reports that he is feeling better and is open to the likelihood of discharge tomorrow. He denied any side effects of the medication. Mental Status Exam 2 MSE Comments: This is an overweight versus obese white male in hospital scrubs with poor grooming and limited eye contact. No abnormal movements except for psychomotor retardation. Cooperative with exam in distress. Speech was decreased rate and volume. Mood described as a little better, affect congruent. Thought process organized. Thought content: Patient denied suicidal or homicidal ideation, there were no delusions reported or noted, he denied auditory or visual hallucination. Attention, concentration and memory appeared intact, but none were formally tested. He appeared alert and oriented x 3. Insight, judgment and impulse control all appeared limited. Vitals/I&O/Wt Last Vital Signs Temp 98.9 F 11/03/24 06:00 Pulse 74 11/03/24 06:00 Resp 18 11/03/24 06:00 BP 126/56 11/03/24 06:00 Pulse Ox 97 11/03/24 06:00 O2 Del Method Room Air 11/03/24 06:00 Data NPU 10/30/24 21:35 10/30/24 21:35 A&P Assessment and plan (1) Chronic post-traumatic stress disorder: (2) Borderline personality disorder: (3) Bipolar disorder: (4) Suicidal ideations: Plan This is a 39-year-old white male with a long history of addiction, mental health treatment but limited medications who was just discharged from this facility 24 days ago and presents once again reporting reported suicidality. He has working diagnoses of borderline personality disorder and PTSD. ADHD is also present, contributing to difficulties with attention and impulsivity. Bipolar disorder symptoms have been noted since the age of 13, characterized by mood swings, aggression, and periods of depression. Anxiety is pervasive, manifesting as constant worry. 1. Continue current medication. Increased Abilify to 15 mg. 2. Continue every 15 minute checks for safety. 3. Encourage individual, group and milieu therapies. 4. Obtain collateral information. 5. Evaluate against the backdrop of the 96-hour hold. 6. Patient probably needs increased outpatient services and contacts through either case management or more intensive outpatient therapy. PDMP PDMP Reviewed: Not Reviewed Involuntary Hold Information 2 Hold Status: Legal Status: 96 Hour Hold Date/Time Hold Expires: 0 11/05/24@00:01 Attestations NPU 2 Medical Necessity Statement*: Inpatient hospitalization is medically necessary and the clinically appropriate intervention at this time. We will monitor/initiate medications and make changes as indicated. Likely length of stay 1-2 days. Coding Level of Care Code Acute Code for g Fwd Diagnoses Chronic post-traumatic stress disorder F43.12 Borderline personality disorder F60.3 Bipolar disorder F31.9 Suicidal ideations R45.851
[2024-11-03 19:28] VITALS: BP 116/77; PULSE 94; RESP 18; TEMP 37.2; O2SAT 96
[2024-11-04 06:00] VITALS: BP 112/71; PULSE 65; RESP 18; TEMP 36.9; O2SAT 96
[2024-11-04] MEDS: ARIPiprazole 10 mg Tablet 15 MG PO (07:53)
[2024-11-04] MEDS: hydroCHLOROthiazide 25 mg Tablet 12.5 MG PO (07:53)
[2024-11-04] MEDS: lisinopril 10 mg Tablet PO (07:54)
--- NOTE | 2024-11-04 13:24 | W.PM.NPUDCS ---
Diagnoses at Discharge Discharge Diagnosis (1) Chronic post-traumatic stress disorder: Status: Acute (2) Borderline personality disorder: Status: Acute (3) Bipolar disorder: Status: Acute (4) Suicidal ideations: Status: Resolved Reason for Visit Reason for Visit: SI Involuntary Hold Information Hold Status: Legal Status: 96 Hour Hold Date/Time Hold Expires: 11/05/24@00:01 Mental Status Exam MSE Comments: This is an overweight versus obese white male in hospital scrubs with poor grooming and limited eye contact. No abnormal movements except for psychomotor retardation. Cooperative with exam in distress. Speech was decreased rate and volume. Mood described as a little better, affect congruent. Thought process organized. Thought content: Patient denied suicidal or homicidal ideation, there were no delusions reported or noted, he denied auditory or visual hallucination. Attention, concentration and memory appeared intact, but none were formally tested. He appeared alert and oriented x 3. Insight, judgment and impulse control all appeared limited. Discharge Data Studies Completed and Pending: Laboratory Results WBC 11.50 10^3/uL (3. 29-11.43) H 10/30/24 21:35 RBC 4.77 10^6/uL (3.8 5-5.65) 10/30/24 21:35 Hgb 14.50 g/dL (11.27 -16.99) 10/30/24 21:35 Hct 44.1 % (37-53) 10/30/24 21:35 MCV 92.5 fl (82-101) 10/30/24 21:35 MCH 30.4 pg (27-33) 10/30/24 21:35 MCHC 32.9 g/dL (30-55) 10/30/24 21:35 RDW 12.9 % (12.1-15.1 ) 10/30/24 21:35 Plt Count 268 10^3/cmm (157 -399) 10/30/24 21:35 MPV 9.0 fL (7.4-10.4) 10/30/24 21:35 Neut % (Auto) 58.6 % 10/30/24 21:35 Lymph % (Auto) 30.2 % 10/30/24 21:35 [place] % (Auto) 8.4 % 10/30/24 21:35 Eos % (Auto) 2.0 % 10/30/24 21:35 Baso % (Auto) 0.5 % 10/30/24 21:35 Neut # (Auto) 6.73 10^3/uL (1.8 -7.7) 10/30/24 21:35 Lymph # (Auto) 3.5 10^3/uL (0.8- 4.8) 10/30/24 21:35 [place] # (Auto) 1.0 10^3/uL (0.2- 0.9) H 10/30/24 21:35 Eos # (Auto) 0.2 10^3/uL (0.0- 0.8) 10/30/24 21:35 Baso # (Auto) 0.1 10^3/uL (0.0- 0.1) 10/30/24 21:35 Nucleated RBC % (a uto) 0 % 10/30/24 21:35 Nucleated RBCs # 0.0 /100WBC 10/30/24 21:35 Sodium 140 mmol/L (136-1 45) 10/30/24 21:35 Potassium 4.0 mmol/L (3.5-5 .1) 10/30/24 21:35 Chloride 102 mmol/L (98-10 7) 10/30/24 21:35 Carbon Dioxide 25 mmol/L (22-29) 10/30/24 21:35 Anion Gap 17.0 (5-19) 10/30/24 21:35 BUN 12 mg/dL (6-20) 10/30/24 21:35 Creatinine 0.9 mg/dL (0.7-1. 2) 10/30/24 21:35 GFR Calculation 93.9 mL/min (90-1 30) 10/30/24 21:35 Glucose 101 mg/dL (65-115 ) 10/30/24 21:35 Calculated Osmolal ity 290 mOsm/kg (285- 295) 10/30/24 21:35 Calcium 9.9 mg/dL (8.5-10 .5) 10/30/24 21:35 Total Bilirubin 0.3 mg/dL (0.15-1 .2) 10/30/24 21:35 AST 15 U/L (0-40) 10/30/24 21:35 ALT 23 U/L (0-41) 10/30/24 21:35 Alkaline Phosphata se 73 U/L (40-130) 10/30/24 21:35 Total Protein 7.8 g/dL (6.6-8.7 ) 10/30/24 21:35 Albumin 4.6 g/dL (3.5-5.2 ) 10/30/24 21:35 Globulin 3.2 g/dL (1.3-4.6 ) 10/30/24 21:35 Salicylates < 0.3 mg/dL (3-10 ) L 10/30/24 21:35 Urine Opiates Scre en Negative ng/mL (N egative) 10/30/24 21:47 Acetaminophen < 5.0 ug/mL (10-3 0) L 10/30/24 21:35 Ur Barbiturates Sc reen Negative ng/mL (N egative) 10/30/24 21:47 Ur Phencyclidine S crn Negative ng/mL (N egative) 10/30/24 21:47 Ur Amphetamines Sc reen Negative ng/mL (N egative) 10/30/24 21:47 U Benzodiazepines Scrn Negative ng/mL (N egative) 10/30/24 21:47 Urine Cocaine Scre en Negative ng/mL (N egative) 10/30/24 21:47 U Marijuana (THC) Screen Negative ng/mL (N egative) 10/30/24 21:47 Ethyl Alcohol < 10 mg/dL (0-10) 10/30/24 21:35 Vitals: Last Vital Signs Temp 98.5 F 11/04/24 06:00 Pulse 65 11/04/24 06:00 Resp 18 11/04/24 06:00 BP 112/71 11/04/24 06:00 Pulse Ox 96 11/04/24 06:00 O2 Del Method Room Air 11/04/24 06:00 Discharge Plan Discharge Patient Disposition: Home Condition: Stable Prescriptions: New aripiprazole 10 mg Tablet 15 mg PO DAILY 30 Days Qty: 45 1RF Rx Instructions: Can give 15 mg tablet. Continued trazodone 50 mg tablet 50 mg PO BEDTIME PRN (Reason: Sleep) 30 Days Qty: 30 1RF lisinopril-hydrochlorothiazide 10-12.5 mg tablet 1 tab PO DAILY Qty: 30 1RF Discontinued aripiprazole 10 mg tablet 10 mg PO DAILY 30 Days Qty: 30 1RF Discharge Orders: Discharge Order (Routine); Ordered 11/04/24 Ordered By: Lyndon Londono Referrals: Hilda Collins MD [Primary Care Provider] - Discharge Diet: Regular Discharge Activity: Resume usual activity Patient Instructions: Opioid Safety Discharge Attestations NPU Time Spent in Discharge Care*: less than 30 min Specific Discharge Activities: Specific discharge activities: educating patient, discussing with telephonic nurse case manager/social workers/dc planners, documenting/other paperwork and evaluating patient/reviewing data Coding Level of Care Code Acute Code for [facility] Fwd Diagnoses Chronic post-traumatic stress disorder F43.12 Borderline personality disorder F60.3 Bipolar disorder F31.9 Suicidal ideations R45.851
[2024-11-04 13:57] VITALS: BP 119/85; PULSE 84; RESP 18; TEMP 36.7; O2SAT 98
[2024-11-04 14:00] VITALS: BP 108/72; PULSE 83; RESP 18; TEMP 37.3; O2SAT 95
== END 2024-11-04 15:08 | disposition home or self-care (01) | DRG 885 ==
LOC: ER 22:03 → NP 22:07
PROVIDERS: Admitting Provider Psychiatry & Neurology Psychiatry; Emergency Provider Emergency Medicine; PCP Family Medicine; Visit Provider Psychiatry & Neurology Psychiatry
DX: F31.9 Bipolar disorder, unspecified (principal); R45.851 Suicidal ideations; F43.12 Post-traumatic stress disorder, chronic; F60.3 Borderline personality disorder; E66.9 Obesity, unspecified; F17.210 Nicotine dependence, cigarettes, uncomplicated; Z68.28 Body mass index [BMI] 28.0-28.9, adult; Z79.891 Long term (current) use of opiate analgesic
CPT/HCPCS: 36415; 80053; 80306; 80307; 85025; 97150; 97165; 99285; J9999